=== PATIENT | female | born 2000 | race African-American/Black ===

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

== ENCOUNTER 2021-09-15 22:53 | Emergency (ER) | payer MEDICAID ==
[~2021-09-15] VITALS: Ht 167.6 cm; Wt 111.3 kg
[~2021-09-15 22:53] MED LIST changes: +NAPR-683 PO
[2021-09-16] MEDS ORDERED: FLUORESCEIN OPHTH TEST STRIP. ONE (00:26)
[2021-09-16] MEDS ORDERED: TETRACAINE 0.5% OPHTH SOLUTION 4ML BOTTLE. ONE (00:27)
--- NOTE | 2021-09-16 00:50 | ED.ADGEN ---
Past Medical History Past Medical History: STD, Other Additional Past Medical Histor: Genital Herpes; Gonnorhea,Chlamydia treated Past Surgical History: No Surgical History Smoking Status: Never Smoker Alcohol Use: None Drug Use: None General Adult EDM: Chief Complaint: EYE PROBLEMS HPI: HPI: Patient is a 21 year old female presenting with left eye irritation. Patient states that she put her contacts in before work but felt pain in her eyes were tearing. Patient took her contacts out but still felt a tearing of pain. Says is gotten better and is more of a dull ache now. Patient wears daily contacts but has been using the same pair for approximately 1 month. Says she occasionally wears glasses. Denies any purulent discharge or photophobia Review of Systems: Review of Systems: All other systems within normal limits except for as noted in the HPI Current Medications: Current Medications Medications (Trade) Dose Ordered Sig/Teagan Start Time Stop Time Status Last Admin Dose Admin Fluorescein Sodium (Ful-Jennifer) 1 strip STK-MED ONCE 09/16/21 00:26 09/16/21 00:27 DC Tetracaine HCl (Tetracaine) 40 drop STK-MED ONCE 09/16/21 00:27 09/16/21 00:27 DC Tobramycin Sulfate (Tobrex Ophth Soln) 2 drop 1X ONCE 09/16/21 01:00 09/16/21 01:01 UNV Allergies: Allergies: Allergies Coded Allergies Type Severity Reaction Last Updated Verified No Known Drug Allergies 02/06/15 No Physical Exam: PE: Constitutional: Well developed, well nourished, no acute distress, non-toxic appearance. [] HENT: Normocephalic, atraumatic, bilateral external ears normal, nose normal. [] Eyes: PERRLA, conjunctiva normal, no discharge. Slight injection of conjunctive on the medial aspect of left eye. Fluorescein exam. Small amount of uptake in the upper cornea, no foreign bodies [] Neck: No rigidity, supple, no stridor. [] Cardiovascular: Regular rate and rhythm, brisk cap refill [] Lungs & Thorax: Non labored symmetric respirations, no tachypnea or respiratory distress [] Abdomen: Soft, nondistended. Skin: Warm, dry, no erythema, no rash. [] Back: Unremarkable Extremities: No deformities, range of motion grossly intact, no lower extremity edema [] Neurologic: Alert and oriented X 3, no focal deficits noted. [] Psychologic: Affect normal, judgement normal, mood normal. [] Current Patient Data: Labs: Laboratory Tests Test 09/16/21 00:11 Glucose (Fingerstick) 206 mg/dL (70-99) H EKG: EKG: [] Heart Score: C/O Chest Pain: No Risk Factors: Risk Factors: DM, Current or recent (<one month) smoker, HTN, HLP, family history of CAD, obesity. Risk Scores: Score 0 - 3: 2.5% MACE over next 6 weeks - Discharge Home Score 4 - 6: 20.3% MACE over next 6 weeks - Admit for Clinical Observation Score 7 - 10: 72.7% MACE over next 6 weeks - Early Invasive Strategies Radiology/Procedures: Radiology/Procedures: [] Course & Med Decision Making: Course & Med Decision Making Pertinent Labs and Imaging studies reviewed. (See chart for details) [] Dragon Disclaimer: Dragon Disclaimer: This electronic medical record was generated, in whole or in part, using a voice recognition dictation system. Departure Departure Impression: Primary Impression: Conjunctivitis, left eye Disposition: HOME / SELF CARE / HOMELESS Condition: STABLE Referrals: NO PCP (PCP) Patient Instructions: Tobramycin eye solution Additional Instructions: Tobramycin eyedrops: 2 drops in left eye every 6 hours for 5 days. Follow-up with ophthalmology [facility] [place] [address] [facility], [address] [address] NIDIA DICKEY MD Sep 16, 2021 00:50
[2021-09-16 00:58] VITALS: BP 142/84
[2021-09-16] MEDS ORDERED: TETRACAINE 0.5% OPHTH SOLUTION 4ML BOTTLE. OS ONE (01:00)
[2021-09-16] MEDS ORDERED: FLUORESCEIN OPHTH TEST STRIP. OS ONE (01:00)
[2021-09-16] MEDS ORDERED: TOBRAMYCIN 0.3% OPHTH SOLUTION 5ML BOTTLE. OS ONE (01:30)
== END 2021-09-16 01:01 | disposition home or self-care (01) ==
LOC: ER 22:53
DX: H10.9 Unspecified conjunctivitis (principal)
CPT/HCPCS: 82962; 99283